=== PATIENT | male | born 2000 | race Caucasian/White ===

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

== ENCOUNTER 2023-06-05 18:35 | Emergency (ER) | payer BC, OTHER ==
[~2023-06-05] VITALS: Ht 170.2 cm; Wt 83.1 kg
[~2023-06-05 18:35] MED LIST: LIDO20SO16 PO
[2023-06-05 18:44] VITALS: BP 122/80; PULSE 100; RESP 18; TEMP 98.2; O2SAT 100
[2023-06-05] MEDS ORDERED: TRIA15CR61 TOP (19:36)
[2023-06-05] MEDS ORDERED: PRED20TA PO (19:36)
[2023-06-05] MEDS ORDERED: FAMO-128 PO (19:37)
[2023-06-05] MEDS ORDERED: DIPH25CA83 PO (19:37)
[2023-06-05] MEDS ORDERED: HYDR28CR14 TOP (19:37)
[2023-06-05] MEDS ORDERED: famotidine 20mg tablet PO ONE (19:40)
[2023-06-05] MEDS ORDERED: diphenhydrAMINE 50 mg/ml inj IM ONE (19:40)
== END 2023-06-05 20:08 | disposition home or self-care (01) ==
LOC: ER 18:36
DX: L25.5 Unspecified contact dermatitis due to plants, except food (principal); Z79.899 Other long term (current) drug therapy
CPT/HCPCS: 70360; 96372; 99283; J1200